=== PATIENT | female | born 1995 | race Caucasian/White ===

== ENCOUNTER 2017-10-26 13:11 | Emergency (ER) | payer OTHER ==
--- NOTE | 2017-10-26 13:40 | EDM.PDOC ---
ED HPI GENERAL MEDICAL PROBLEM - General Chief Complaint: Genitourinary Problem Stated Complaint: BLADDER AND KIDNEY PAIN Time Seen by Provider: 10/26/17 13:17 Source of Information: Reports: Patient History Limitations: Reports: No Limitations - History of Present Illness INITIAL COMMENTS - FREE TEXT/NARRATIVE: HISTORY AND PHYSICAL: History of present illness: The skin is a 22-year-old female who presents to the emergency room with complaints of dysuria, pain to the left low back and strong smelling urine. She states she has noticed these symptoms for approximately one week. She mentions concern of STD exposure. Stating when of her friends told her her significant other had a something". She is unsure of which STD she was exposed to. Denies any vaginal bleeding, discharge or any open sores or lesions to her genitals. Last menstrual period October 07, 2017. Review of systems: As per history of present illness and below otherwise all systems reviewed and negative. Past medical history: As per history of present illness and as reviewed below otherwise noncontributory. Surgical history: As per history of present illness and as reviewed below otherwise noncontributory. Social history: No reported history of drug or alcohol abuse. Family history: As per history of present illness and as reviewed below otherwise noncontributory. Physical exam: Gen.: Well-developed and well-nourished 22-year-old female. Alert and oriented. Appears nontoxic and in no acute distress. HEENT: Atraumatic, normocephalic, pupils reactive, negative for conjunctival pallor or scleral icterus, mucous membranes moist, throat clear, neck supple, nontender, trachea midline. Lungs: Clear to auscultation, breath sounds equal bilaterally, chest nontender. Heart: S1S2, regular, negative for clicks, rubs, or JVD. Abdomen: Soft, nondistended, nontender. Negative for masses or hepatosplenomegaly. Negative for costovertebral tenderness. Pelvis: Stable, diffuse tenderness. Genitourinary: Deferred. Rectal: Deferred. Extremities: Atraumatic, negative for cords or calf pain. Neurovascular unremarkable. Neuro: Awake, alert, oriented. Cranial nerves II through XII unremarkable. Cerebellum unremarkable. Motor and sensory unremarkable throughout. Exam nonfocal. Did inform the patient that we could do a gonorrhea and chlamydia tests through our emergency department, but she should follow-up with her primary care provider for further STD testing. She voices understanding. Informed her these results would be given to her in 3-5 for business days if anything returns positive. Has been treated with abx for prophylatic treatment. Script has been sent to & for Bactrim DS to treat UTI. Diagnostics: UA, hCG U, gonorrhea and chlamydia Therapeutics: Azithromycin 1 gm Rocephin 250 mg IM Impression: STD exposure UTI Plan: 1. Your prescription has been sent to & pharmacy. 2. You have been screened for gonorrhea and chlamydia. He is follow-up with your primary care provider for further STD testing that is not available through our emergency department. These results would be given to you in 3-5 for business days if anything returns positive. 3. Please follow up with her primary caregiver. Return to the ED as needed and as discussed. Definitive disposition and diagnosis as appropriate pending reevaluation and review of above. 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 Musculoskeletal History: Reports: None Neurological History: Reports: None Psychiatric History: Reports: None Endocrine/Metabolic History: Reports: None Hematologic History: Reports: None Immunologic History: Reports: None Oncologic (Cancer) History: Reports: None Dermatologic History: Reports: None - Infectious Disease History Infectious Disease History: Reports: Hepatitis A - Past Surgical History Head Surgeries/Procedures: Reports: None HEENT Surgical History: Reports: None Cardiovascular Surgical History: Reports: None Respiratory Surgical History: Reports: None GI Surgical History: Reports: None Female Surgical History: Reports: None Endocrine Surgical History: Reports: None Neurological Surgical History: Reports: None Musculoskeletal Surgical History: Reports: None Dermatological Surgical History: Reports: None Social & Family History - Family History Family Medical History: Noncontributory - Tobacco Use Smoking Status *Q: Current Every Day Smoker Years of Tobacco use: 3 Packs/Tins Daily: 0.2 - Caffeine Use Caffeine Use: Reports: Coffee - Recreational Drug Use Recreational Drug Use: No ED ROS GENERAL - Review of Systems Review Of Systems: ROS reveals no pertinent complaints other than HPI. ED EXAM, GENERAL - Physical Exam Exam: See Below (See dictation) Course - Vital Signs Last Recorded V/S: Last Vital Signs Temp 99.0 F 10/26/17 13:24 Pulse 96 10/26/17 13:24 Resp 18 10/26/17 13:24 BP 118/65 10/26/17 13:24 Pulse Ox 99 10/26/17 13:24 - Orders/Labs/Meds Orders: Active Orders 24 hr Category Date Time Status CHLAMYDIA AND GONORRHEA BY TMA Stat Lab 10/26/17 13:35 Received Azithromycin [Zithromax] Med 10/26/17 14:08 Stat 1,000 mg PO NOW STA cefTRIAXone [Rocephin] Med 10/26/17 14:08 Once 250 mg IM ONETIME ONE Labs: Laboratory Tests 10/26/17 10/26/17 Range/Units 13:35 13:35 Urine Color YELLOW Urine Appearance SLT CLOUDY Urine pH 6.0 (5.0-8.0) Ur Specific [place]el 1.025 (1.001-1.035) Urine Protein NEGATIVE (NEGATIVE) mg/dL Urine Glucose (UA) NEGATIVE (NEGATIVE) mg/dL Urine Ketones NEGATIVE (NEGATIVE) mg/dL Urine Occult Blood NEGATIVE (NEGATIVE) Urine Nitrite NEGATIVE (NEGATIVE) Urine Bilirubin NEGATIVE (NEGATIVE) Urine Urobilinogen 0.2 (<2.0) EU/dL Ur Leukocyte Esterase LARGE (NEGATIVE) Urine RBC 0-1 (0-2/HPF) Urine WBC 10-12 (0-5/HPF) Ur Epithelial Cells MODERATE (NONE-FEW) Urine Bacteria 1+ H (NEGATIVE) Urine HCG, Qual NEGATIVE (NEGATIVE) Departure - Departure Time of Disposition: 14:10 Disposition: Home, Self-Care 01 Clinical Impression: UTI, Urinary tract infectious disease, STD exposure - Discharge Information Prescriptions: Sulfamethoxazole/Trimethoprim [Bactrim Ds Tablet] 1 each PO BID 14 Days #28 tablet Referrals: PCP,None [Primary Care Provider] - Forms: ED Department Discharge Additional Instructions: My general discharge The following information is given to patients seen in the emergency department who are being discharged to home. This information is to outline your options for follow-up care. We provide all patients seen in our emergency department with a follow-up referral. The need for follow-up, as well as the timing and circumstances, are variable depending upon the specifics of your emergency department visit. If you don't have a primary care physician on staff, we will provide you with a referral. We always advise you to contact your personal physician following an emergency department visit to inform them of the circumstance of the visit and for follow-up with them and/or the need for any referrals to a consulting specialist. The emergency department will also refer you to a specialist when appropriate. This referral assures that you have the opportunity for follow-up care with a specialist. All of these measure are taken in an effort to provide you with optimal care, which includes your follow-up. Under all circumstances we always encourage you to contact your private physician who remains a resource for coordinating your care. When calling for follow-up care, please make the office aware that this follow-up is from your recent emergency room visit. If for any reason you are refused follow-up, please contact the [facility] Emergency Department at and asked to speak to the emergency department charge nurse. [facility] [address] [place] [address] 1. Your prescription has been sent to [facility]. 2. Please practice safe sex. You have been screened for gonorrhea and chlamydia. He is follow-up with your primary care provider for further STD testing that is not available through our emergency department. These results would be given to you in 3-5 for business days if anything returns positive. 3. Please follow up with her primary caregiver. Return to the ED as needed and as discussed. - My Orders Last 24 Hours: My Active Orders 10/26/17 13:35 CHLAMYDIA AND GONORRHEA BY TMA Stat 10/26/17 14:08 Azithromycin [Zithromax] 1,000 mg PO NOW STA cefTRIAXone [Rocephin] 250 mg IM ONETIME ONE - Assessment/Plan Last 24 Hours: My Active Orders 10/26/17 13:35 CHLAMYDIA AND GONORRHEA BY TMA Stat 12/22/17 14:08 Azithromycin [Zithromax] 1,000 mg PO NOW STA cefTRIAXone [Rocephin] 250 mg IM ONETIME ONE
[2017-10-26] MEDS ORDERED: Azithromycin 250 MG Tab PO STA (14:08)
[2017-10-26] MEDS ORDERED: cefTRIAXone 250 MG Vial IM ONE ×2 (14:08→14:25)
[2017-10-26] MEDS ORDERED: cefTRIAXone 250 MG in Lidocaine 1% 1 ML IM ONE (14:28)
== END 2017-10-26 14:57 | disposition home or self-care (01) ==
LOC: MW.ED 13:11
DX: N39.0 Urinary tract infection, site not specified (principal); Z20.2 Contact with and (suspected) exposure to infections with a predominantly sexual mode of transmission; F17.210 Nicotine dependence, cigarettes, uncomplicated
CPT/HCPCS: 81001; 81025; 87086; 87491; 87591; 96372; 99284; A9270; J0696; 99283

== ENCOUNTER 2022-02-03 16:30 | Emergency (ER) | payer BC ==
[2022-02-03] MEDS ORDERED: Sodium Chloride 0.9% 1,000 ML IV ONE (16:36)
[2022-02-03] MEDS ORDERED: Alum Hydro/Mag Hydro/Simeth XS 15 ML, Lidocaine 2% 5 ML PO ONE ×2 (16:43)
[2022-02-03] MEDS ORDERED: Ondansetron 4 MG/2 ML SDV IVPUSH ONE (16:50)
[2022-02-03 17:32] LABS: CORONAVIRUS COVID-19 NAA NEGATIVE (NEGATIVE); INFLUENZA A NAA NEGATIVE (NEGATIVE); INFLUENZA B NAA NEGATIVE (NEGATIVE)
[2022-02-03 17:38] LABS: BLOOD UREA NITROGEN,BUN 8 mg/dL (7.0-18.0); CARBON DIOXIDE,CO2 21.7 mmol/L (21.0-32.0); CHLORIDE,CL 102 mmol/L (98-107); GLUCOSE RANDOM 95 mg/dL (74-106); POTASSIUM,K 3.7 mmol/L (3.5-5.1); SODIUM,NA 138 mmol/L (136-145)
== END 2022-02-03 18:21 | disposition home or self-care (01) ==
LOC: MW.ED 16:30
DX: O99.612 Diseases of the digestive system complicating pregnancy, second trimester (principal); K21.9 Gastro-esophageal reflux disease without esophagitis; Z20.822 Contact with and (suspected) exposure to COVID-19; Z3A.19 19 weeks gestation of pregnancy
CPT/HCPCS: 0240U; 36415; 80053; 81003; 85025; 96374; 99284; A9270; J2405; J7030

== ENCOUNTER 2022-06-24 02:51 | Inpatient (IN) | payer MEDICAID ==
[2022-06-24] MEDS ORDERED: Misoprostol 200 MCG Tab PO PRN (03:37)
[2022-06-24] MEDS ORDERED: Ondansetron 4 MG/2 ML SDV IVPUSH PRN (03:37)
[2022-06-24] MEDS ORDERED: Butorphanol 1 MG/ML SDV IVPUSH PRN (03:37)
[2022-06-24] MEDS ORDERED: Methylergonovine 0.2 MG/1 ML Amp IM PRN (03:37)
[2022-06-24] MEDS ORDERED: Sodium Chloride 0.9% 10 ML Syringe FLUSH PRN (03:37)
[2022-06-24] MEDS ORDERED: Water For Irrigation,Sterile 1,000 ML Container IRR PRN (03:37)
[2022-06-24] MEDS ORDERED: Lidocaine 1% 50 ML MDV INJECT PRN (03:37)
[2022-06-24] MEDS ORDERED: Carboprost Tromethamine 250 MCG/1 ML Amp IM PRN (03:37)
[2022-06-24] MEDS ORDERED: Tranexamic Acid 1,000 MG in Sodium Chloride 0.9% 100 ML IV PRN (03:37)
[2022-06-24] MEDS ORDERED: Sodium Chloride 0.9% 2.5 ML Syringe FLUSH PRN (03:37)
[2022-06-24] MEDS ORDERED: Sodium Chloride 0.9% 20 ML SDV IV PRN (03:37)
[2022-06-24] MEDS ORDERED: Oxytocin/0.9 % Sodium Chloride 30 UNIT/500 ML BAG IV SCH (03:45)
[2022-06-24] MEDS: Lactated Ringers 1,000 ML IV SCH ×3 (04:39→09:19)
[2022-06-24] MEDS ORDERED: Ropivacaine/PF 400 MG/200 ML PCA ONE (05:57)
[2022-06-24] MEDS ORDERED: ePHEDrine 50 MG/ML SDV IVPUSH PRN (06:11)
[2022-06-24] MEDS ORDERED: Phenylephrine HCl In 0.9% NaCl 1 MG/10 ML Vial IVPUSH SCH (06:15)
[2022-06-24] MEDS ORDERED: Ropivacaine HCl/PF 400 MG in Premix Bag 1 BAG EPIDUR SCH (06:15)
[2022-06-24] MEDS ORDERED: Calcium Carbonate 500 MG Tab.Chew PO ONE (09:12)
[2022-06-24] MEDS ORDERED: Ketorolac 30 MG/ML SDV IVPUSH ONE (11:25)
[2022-06-24] MEDS ORDERED: Bisacodyl 10 MG Supp RECTAL PRN (12:18)
[2022-06-24] MEDS ORDERED: Acetaminophen 500 MG Tab PO PRN (12:18)
[2022-06-24] MEDS ORDERED: Lanolin 100% Cream 7 GM Tube TOP PRN (12:18)
[2022-06-24] MEDS ORDERED: oxyCODONE 5 MG Tab PO PRN (12:18)
[2022-06-24] MEDS ORDERED: Witch Hazel Medicated Pads 40/Jar TOP PRN (12:18)
[2022-06-24] MEDS ORDERED: Docusate Sodium 100 MG Cap PO PRN (12:18)
[2022-06-24] MEDS ORDERED: Benzocaine/Menthol 20%-0.5% Spray 78 GM Cannister TOP PRN (12:18)
[2022-06-24] MEDS: Ibuprofen 600 MG Tab PO SCH (21:54)
[2022-06-25] MEDS: Ibuprofen 600 MG Tab PO SCH ×3 (06:46→14:01)
== END 2022-06-25 13:45 | disposition home or self-care (01) | DRG 807 ==
LOC: MW.OBCHECK 02:51 → MW.OB 02:52 → MW.OBCHECK 03:37 → MW.OB 03:38 → OBSVTOIN 09:46 → MW.OB 13:38
PROVIDERS: ADMIT Obstetrics & Gynecology; ATTEND Obstetrics & Gynecology
PROC: 10E0XZZ Delivery of Products of Conception, External Approach (ICD-10-PCS; principal; 2022-06-24)
PROC: 3E0R3BZ Introduction of Anesthetic Agent into Spinal Canal, Percutaneous Approach (ICD-10-PCS; 2022-06-24)
PROC: 00HU33Z Insertion of Infusion Device into Spinal Canal, Percutaneous Approach (ICD-10-PCS; 2022-06-24)
DX: O69.81X0 Labor and delivery complicated by cord around neck, without compression, not applicable or unspecified (principal); Z37.0 Single live birth; Z3A.39 39 weeks gestation of pregnancy; Z20.822 Contact with and (suspected) exposure to COVID-19
CPT/HCPCS: 01967; 36415; 51702; 59025; 59409; 85014; 85018; 85027; 86592; 86850; 86900; 86901; A9270-GY; J0595; J2795; J7120; U0002

== ENCOUNTER 2024-08-07 05:07 | Inpatient (IN) | payer MEDICAID ==
[2024-08-07] MEDS ORDERED: Tranexamic Acid IN NACL,ISO-OS 1,000 MG in Premix Bag 1 BAG IV PRN (05:10)
[2024-08-07] MEDS ORDERED: Ondansetron 4 MG/2 ML SDV IVPUSH PRN (05:10)
[2024-08-07] MEDS ORDERED: Water For Irrigation,Sterile 1,000 ML Container IRR PRN (05:10)
[2024-08-07] MEDS ORDERED: Lidocaine 1% 50 ML MDV INJECT PRN (05:10)
[2024-08-07] MEDS ORDERED: Butorphanol 2 MG/ML SDV IVPUSH PRN (05:10)
[2024-08-07] MEDS ORDERED: Sodium Chloride 0.9% 20 ML SDV IV PRN (05:10)
[2024-08-07] MEDS ORDERED: Sodium Chloride 0.9% 2.5 ML Syringe FLUSH PRN (05:10)
[2024-08-07] MEDS ORDERED: Carboprost Tromethamine 250 MCG/1 mL Vial IM PRN (05:10)
[2024-08-07] MEDS ORDERED: Misoprostol 200 MCG Tab PO PRN (05:10)
[2024-08-07] MEDS ORDERED: Sodium Chloride 0.9% 10 ML Syringe FLUSH PRN (05:10)
[2024-08-07] MEDS ORDERED: Terbutaline 1 MG/ML SDV SUBCUT PRN (05:12)
[2024-08-07] MEDS ORDERED: Oxytocin/0.9 % Sodium Chloride 30 UNIT/500 ML BAG IV SCH (05:15)
[2024-08-07] MEDS: Lactated Ringers 1,000 ML IV SCH (06:00)
[2024-08-07 06:06] LABS: HEMATOCRIT 35.4 % (37.0-47.0); HEMOGLOBIN 11.7 g/dL (12.0-16.0); MEAN CORPUSCULAR HEMOGLOBIN 27.8 pg (28.0-32.0); MEAN CORPUSCULAR HGB CONC 33.1 g/dL (32.0-36.0); MEAN CORPUSCULAR VOLUME 84.1 fL (83.0-99.0); MEAN PLATELET VOLUME 10.5 fL (9.4-12.3); PLATELET COUNT,PLT 252 K/uL (150-400); RED BLOOD CELL COUNT 4.21 M/uL (4.10-5.30)
[2024-08-07] MEDS: Oxytocin/0.9 % Sodium Chloride 30 UNIT/500 ML BAG IV SCH (06:27)
[2024-08-07] MEDS: Methylergonovine 0.2 MG/1 ML Amp IM PRN (12:45)
[2024-08-07] MEDS ORDERED: Benzocaine/Menthol 20%-0.5% Spray 78 GM Cannister TOP PRN (15:50)
[2024-08-07] MEDS ORDERED: Docusate Sodium 100 MG Cap PO PRN (15:50)
[2024-08-07] MEDS ORDERED: Lanolin 100% Cream 7 GM Tube TOP PRN (15:50)
[2024-08-07] MEDS ORDERED: Acetaminophen 500 MG Tab PO PRN (15:50)
[2024-08-07] MEDS ORDERED: Witch Hazel Medicated Pads 40/Jar TOP PRN (15:50)
[2024-08-07] MEDS: Ibuprofen 800 MG Tab PO PRN (17:08)
[2024-08-08 06:12] LABS: HEMATOCRIT 34.8 % (37.0-47.0); HEMOGLOBIN 11.2 g/dL (12.0-16.0)
== END 2024-08-08 15:43 | disposition home or self-care (01) | DRG 807 ==
LOC: MW.OB 05:07 → OBSVTOIN 12:07 → MW.OB 14:32
PROVIDERS: ADMIT Obstetrics & Gynecology; ATTEND Obstetrics & Gynecology
PROC: 10E0XZZ Delivery of Products of Conception, External Approach (ICD-10-PCS; principal; 2024-08-07)
PROC: 3E0P7VZ Introduction of Hormone into Female Reproductive, Via Natural or Artificial Opening (ICD-10-PCS; 2024-08-07)
DX: O69.81X0 Labor and delivery complicated by cord around neck, without compression, not applicable or unspecified (principal); Z37.0 Single live birth; Z3A.38 38 weeks gestation of pregnancy
CPT/HCPCS: 36415; 59025; 59409; 85014; 85018; 85027; 86592; 86850; 86900; 86901; 86920; A9270-GY; J2210; J2590; J7120

== ENCOUNTER 2025-03-12 16:51 | Emergency (ER) | payer MEDICAID ==
[2025-03-12 17:14] LABS: BASOPHILS ABSOLUTE AUTO 0.05 K/uL (0.00-0.20); BASOPHILS PERCENT AUTO 0.4 % (0.0-1.0); EOSINOPHILS ABSOLUTE AUTO 0.17 K/uL (0.00-0.45); EOSINOPHILS PERCENT AUTO 1.2 % (0.0-6.0); HEMATOCRIT 35.3 % (37.0-47.0); HEMOGLOBIN 12.4 g/dL (12.0-16.0); IMMATURE GRAN ABSOLUTE AUTO 0.04 K/uL (0.00-0.05); IMMATURE GRAN PERCENT AUTO 0.3 % (0.0-0.4); LYMPHOCYTES ABSOLUTE AUTO 3.02 K/uL (1.00-4.80); LYMPHOCYTES PERCENT AUTO 21.6 % (24.0-44.0); MEAN CORPUSCULAR HEMOGLOBIN 29.8 pg (28.0-32.0); MEAN CORPUSCULAR HGB CONC 35.1 g/dL (32.0-36.0); MEAN CORPUSCULAR VOLUME 84.9 fL (83.0-99.0); MONOCYTES ABSOLUTE AUTO 0.66 K/uL (0.00-0.80); MONOCYTES PERCENT AUTO 4.7 % (0.0-8.0); NEUTROPHILS ABSOLUTE AUTO 10.06 K/uL (1.80-7.70); NEUTROPHILS PERCENT AUTO 71.8 % (41.0-71.0); PLATELET COUNT,PLT 271 K/uL (150-400); RED BLOOD CELL COUNT 4.16 M/uL (4.10-5.30)
[2025-03-12] MEDS: Sodium Chloride 0.9% 1,000 ML IV ONE (17:35)
[2025-03-12 17:57] LABS: LACTIC ACID 0.9 mmol/L (0.4-2.0)
[2025-03-12 18:04] LABS: A/G RATIO 1.3 (0.9-1.6); ALBUMIN 3.9 g/dL (3.4-5.0); BILIRUBIN TOTAL 0.3 mg/dL (0.2-1.0); CALCIUM 9.4 mg/dL (8.5-10.1); CREATININE 0.6 mg/dL (0.6-1.0); EST CRCL DRUG DOSING (CG) 102.52 mL/min; POTASSIUM,K 3.4 mmol/L (3.5-5.1)
[2025-03-12] MEDS: Ondansetron 4 MG/2 ML SDV IVPUSH ONE (18:50)
== END 2025-03-12 22:42 | disposition home or self-care (01) ==
LOC: MW.ED 16:51
DX: O03.4 Incomplete spontaneous abortion without complication (principal)
CPT/HCPCS: 36415; 76815; 80053; 83605; 84702; 85025; 86850; 86900; 86901; 96361; 96374; 99285; J2405; J7030; 99283